=== PATIENT | female | born 1985 | race Two or more races ===

== ENCOUNTER 2016-10-30 15:35 | Emergency (ER) | payer SELFPAY ==
[2016-10-30 15:40] VITALS: BP 135/87; BMI 31.1
--- NOTE | 2016-10-30 16:16 | ED.ABDFE ---
HPI - Time seen Time seen: 16:15 - PCP Primary Care Physician: EVERARDO - HPI Comment HPI Comment: SHARP PAIN THAT IS INTERMITTENT. S/P CHOLECYSTECTOMY.PAIN IS GETTING WORSE. FEEL NAUSEATED. SHE IS DIZZY. - Complaint Chief Complaint Doctors Comments: ABDOMINAL PAIN, DIARRHEA AND DIZZINESS SINCE THIS AM. NO FEVER. PAIN RADIATES TO LEFT BACK. Chief Complaint:: PT. C/O LOWER ABDOMINAL PAIN THAT RADIATES AROUND TO LEFT SIDE OF BACK, DIARRHEA, AND DIZZINESS. PT. DESCRIBES HER ABDOMINAL PAIN STABBING AND INTERMITTENT. PT. HAS HAD 4 EPISODES OF DIARRHEA SINCE ONSET THIS MORNING. - Nurses notes reviewed Nurses Notes Review: Yes - Source History Provided: Patient - Mode of arrival Mode of Arrival: Ambulatory - Timing Onset of Chief Complaint: 10/30/16 Came on: Suddenly - Duration Duration: Constant Duration: Hours - Severity Severity: Moderate - Quality Quality: Sharp - Context Onset: Suddenly History of: None - Modifying Worsening Factors: Nothing Improving Factors: Nothing - Associated signs and symptoms Associated Signs and Symptoms: Diarrhea PMH - PMH Past Medical History: No Past Surgical History: Yes Surgical History: Cholecystectomy - Family History History of Family Medical Conditions: No - Social History Does patient currently use any type of tobacco product: No Have you used tobacco products in the last 12 months: No Type of Tobacco Use: None Does any household member use tobacco: No Alcohol Use: None Do you use any recreational Drugs:: No Lives With: Family Lives Where: Home - infectious screening In the last 2 months have you had wt loss of >10#?: NO Have you had fever, night sweats or hemotysis?: No Have you traveled outside the country in the last 6 months?: No Isolation: Standard ROS - Review of Systems Constitutional: No Symptoms Reported. negative: Chills, Diaphoresis, Fever, Weakness, Fatigue, Loss of Appetite Eyes: No Symptoms Reported. negative: Eye Pain, Discharge ENTM: No Symptoms Reported. negative: Ear Pain, Nose Discharge, Nose Congestion Respiratoy: No Symptoms Reported. negative: Productive Cough, Non-Productive Cough, Short of Breath, Wheezing, Hemoptysis Cardiovascular: No Symptoms Reported. negative: Chest Pain Gastrointestinal/Abdominal: Abdominal Pain, Diarrhea. negative: Constipation Genitourinary: No Symptoms Reported. negative: Dysuria, Frequency, Hematuria Neurological: No Symptoms Reported. negative: Headache, Weakness, Dizziness Musculoskeletal: No Symptoms Reported Integumentary: No Symptoms Reported Hematologic/Lymphatic: No Symptoms Reported Endocrine: No Symptoms Reported All Other Systems: Reviewed and Negative PE - Vital Signs Vitals: Temperature 97.7 F Pulse Rate 78 Respiratory Rate 18 Blood Pressure 135/87 O2 Sat by Pulse Oximetry 97 - General Limitations: No Limitations General Appearance: Alert - Head Head Exam: Normal Inspection - Eyes Eye exam: Normal Appearance - ENT ENT Exam: Normal External Ear Exam - Neck Neck Exam: Trachea Midline - Chest Chest Inspection: Symmetric Chest Wall Rise - Respiratory Respiratory Exam: Normal Lung Sounds Bilat Respiratory Exam: Bilateral Clear to Auscultation - Cardiovascular Cardiovascular Exam: Regular Rate, Normal Rhythm, Irregular Rhythm - Abdominal Exam Abdominal Exam: Normal Bowel Sounds, Soft, Tenderness Abdominal Tenderness: Diffuse, Moderate - Rectal Rectal Exam: Deferred - Back Back Exam: Normal Inspection - Extremeties Extremities Exam: Normal Inspection - External Exam: Female: Deferred : Speculum Exam (Female): Deferred : Bimanual Exam (female): Deferred - Neurologic Neurological Exam: Alert, Oriented X3 - Psychiatric Psychiatric Exam: Anxious - Skin Skin Exam: Normal Color MDM - Additional Information Obtained From Additional information provided by: Family (NEIGHBOR) - Differential Diagnosis Differential Diagnosis- Considerations may include:: Bowel Obstruction, Diverticular disease, Gastroenteritis, Inflammatory BD, Pancreatitis, Urinary tract infection, Urolithiasis Course - Treatment Treatment: IM PAIN MED IN ED. PAIN DECREASING. 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 - Labs Reviewed Laboratory Results Reviewed?: Yes Result Diagrams: 10/30/16 16:23 10/30/16 16:23 Laboratory: WBC 9.8 X10^3/uL (3.6-10.0) 10/30/16 16:23 RBC 4.28 X10^6/uL (3.5-5.4) 10/30/16 16:23 Hgb 13.0 g/dL (12.0-16.0) 10/30/16 16:23 Hct 37.3 % (36.0-47.0) 10/30/16 16:23 MCV 87.1 fL (80.0-100.0) 10/30/16 16:23 MCH 30.4 pg (27.0-34.0) 10/30/16 16:23 MCHC 34.8 g/dL (33.0-35.0) 10/30/16 16:23 RDW 13.2 % (11.6-16.5) 10/30/16 16:23 Plt Count 343 X10^3/uL (150.0-450.0) 10/30/16 16:23 MPV 7.4 fL (7.4-11.0) 10/30/16 16:23 Neut % 65.8 % (42.0-75.0) 10/30/16 16:23 Lymph % 26.7 % (21.0-51.0) 10/30/16 16:23 [place] % 5.8 % (0.0-13.0) 10/30/16 16:23 Eos % 1.2 % (0.9-2.9) 10/30/16 16:23 Baso % 0.5 % (0.2-1.0) 10/30/16 16:23 Neut # 6.5 x10^3/uL (2.2-4.8) H 10/30/16 16:23 Lymph # 2.6 X10^3/uL (1.3-2.9) 10/30/16 16:23 [place] # 0.6 x10^3/uL (0.3-0.8) 10/30/16 16:23 Eos # 0.1 x10^3/uL (0.0-0.2) 10/30/16 16:23 Baso # 0.1 X10^3/uL (0.0-0.1) 10/30/16 16:23 Absolute Nucleated RBC 0.0 /100WBC 10/30/16 16:23 Sodium 137 mmol/L (136-145) 10/30/16 16:23 Corrected Sodium TNP 10/30/16 16:23 Potassium 3.8 mmol/L (3.5-5.1) 10/30/16 16:23 Chloride 101 mmol/L (98-107) 10/30/16 16:23 Carbon Dioxide 29.2 mmol/L (21-32) 10/30/16 16:23 BUN 9 mg/dL (7-18) 10/30/16 16:23 Creatinine 0.74 mg/dL (0.55-1.02) 10/30/16 16:23 Est GFR (MDRD) Af Amer > 60 (>60) 10/30/16 16:23 Est GFR (MDRD) Non-Af > 60 (>60) 10/30/16 16:23 Glucose 98 mg/dL (65-99) 10/30/16 16:23 Calcium 8.5 mg/dL (8.5-10.1) 10/30/16 16:23 Corrected Calcium TNP 10/30/16 16:23 Total Bilirubin 0.30 mg/dL (0.2-1.0) 10/30/16 16:23 AST 27 Units/L (15-37) 10/30/16 16:23 ALT 45 Units/L (12-78) 10/30/16 16:23 Alkaline Phosphatase 86 Units/L (46-116) 10/30/16 16:23 Total Protein 8.3 g/dL (6.4-8.2) H 10/30/16 16:23 Albumin 3.5 g/dL (3.4-5.0) 10/30/16 16:23 Globulin 4.8 g/dL (2.5-4.5) H 10/30/16 16:23 Albumin/Globulin Ratio 0.7 Ratio (1.1-2.1) L 10/30/16 16:23 Amylase 71 Units/L (25-115) 10/30/16 16:23 Lipase 160 Units/L (73-393) 10/30/16 16:23 HCG, Qual Negative <10 mIU/mL 10/30/16 16:23 Specimen Type Clean catch urine 10/30/16 16:17 Urine Color Pale yellow (YELLOW) 10/30/16 16:17 Urine Appearance Clear (CLEAR) 10/30/16 16:17 Urine pH 6.5 (5.0 - 8.0) 10/30/16 16:17 Ur Specific [place] 1.010 (1.000-1.030) 10/30/16 16:17 Urine Protein Negative (NEGATIVE) 10/30/16 16:17 Urine Glucose (UA) Negative (NEGATIVE) 10/30/16 16:17 Urine Ketones Negative (NEGATIVE) 10/30/16 16:17 Urine Occult Blood 3+ (NEGATIVE) 10/30/16 16:17 Urine Nitrite Negative (NEGATIVE) 10/30/16 16:17 Urine Bilirubin Negative (NEGATIVE) 10/30/16 16:17 Urine Urobilinogen Normal (NORMAL) 10/30/16 16:17 Ur Leukocyte Esterase Negative (NEGATIVE) 10/30/16 16:17 Urine RBC 5-8 /HPF (NEGATIVE) 10/30/16 16:17 Urine WBC 0-1 /HPF (NEGATIVE) 10/30/16 16:17 Ur Squamous Epith Cells Rare /HPF (NEGATIVE) 10/30/16 16:17 Amorphous Sediment Trace /HPF (NEGATIVE) 10/30/16 16:17 Urine Bacteria Negative /HPF (NEGATIVE) 10/30/16 16:17 Ur Culture Indicated? No/not indicated 10/30/16 16:17 - XRAY XRAY Interpreted by: Radiologist XRAY Findings: REPORT DISCUSS WITH PATIENT. - Diagnosis Discharge Problem: Lt flank pain, Dizziness Abdominal pain Qualifiers: Abdominal location: generalized Qualified Code(s): R10.84 - Generalized abdominal pain Diarrhea Qualifiers: Diarrhea type: unspecified type Qualified Code(s): R19.7 - Diarrhea, unspecified - Discharge Plan Disposition: HOME, SELF-CARE Condition: Stable Prescriptions: Dicyclomine HCl [Bentyl Cap 10 mg] 10 mg PO TID #15 cap Diphenoxylate/Atropine [Lomotil] 1 tab PO TID #15 tab - Follow ups/Referrals Follow ups/Referrals: [facility],None [Primary Care Provider] - 3 days MELISSA LANG [STAFF PHYSICIAN] - 10/31/16 - Instructions Instructions: Abdominal Pain, Adult, [id number], Diarrhea, Adult, Easy-to- Read Additional Instructions: RETURN TO ED IF WORSE.
[2016-10-30 16:31] LABS: BASOPHILS # (AUTO) 0.1 X10^3/uL (0.0-0.1); BASOPHILS % (AUTO) 0.5 % (0.2-1.0); EOSINOPHILS # (AUTO) 0.1 x10^3/uL (0.0-0.2); EOSINOPHILS % (AUTO) 1.2 % (0.9-2.9); HEMATOCRIT 37.3 % (36.0-47.0); LYMPHOCYTES # (AUTO) 2.6 X10^3/uL (1.3-2.9); LYMPHOCYTES % (AUTO) 26.7 % (21.0-51.0); MEAN CORPUSCULAR HEMOGLOBIN 30.4 pg (27.0-34.0); MEAN CORPUSCULAR HGB CONC 34.8 g/dL (33.0-35.0); MEAN CORPUSCULAR VOLUME 87.1 fL (80.0-100.0); MEAN PLATELET VOLUME 7.4 fL (7.4-11.0); MONOCYTES # (AUTO) 0.6 x10^3/uL (0.3-0.8); MONOCYTES % (AUTO) 5.8 % (0.0-13.0); NEUTROPHILS # (AUTO) 6.5 x10^3/uL (2.2-4.8); NEUTROPHILS % (AUTO) 65.8 % (42.0-75.0); PLATELET COUNT 343 X10^3/uL (150.0-450.0); RED BLOOD COUNT 4.28 X10^6/uL (3.5-5.4); RED CELL DISTRIBUTION WIDTH 13.2 % (11.6-16.5); WHITE BLOOD COUNT 9.8 X10^3/uL (3.6-10.0)
[2016-10-30 16:32] LABS: BILIRUBIN,URINE NEGATIVE (NEGATIVE); BLOOD/HEMOGLOBIN,URINE 3+ (NEGATIVE); GLUCOSE, URINE NEGATIVE (NEGATIVE); KETONES,URINE NEGATIVE (NEGATIVE); LEUKOCYTE ESTERASE ,URINE NEGATIVE (NEGATIVE); NITRITES,URINE NEGATIVE (NEGATIVE); PH,URINE 6.5 (5.0 - 8.0); PROTEIN,URINE NEGATIVE (NEGATIVE); UROBILINOGEN,URINE NORMAL (NORMAL)
[2016-10-30 16:40] LABS: AMORPHOUS SEDIMENT,UR TRACE /HPF (NEGATIVE); APPEARANCE,URINE CLEAR (CLEAR); BACTERIA,URINE NEGATIVE /HPF (NEGATIVE); COLOR,URINE PALE YELLOW (YELLOW); SQUAMOUS EPITHELIAL CELL,UR RARE /HPF (NEGATIVE)
[2016-10-30 16:43] LABS: ALANINE AMINOTRANSFERASE 45 Units/L (12-78); ALBUMIN 3.5 g/dL (3.4-5.0); ALKALINE PHOSPHATASE 86 Units/L (46-116); AMYLASE 71 Units/L (25-115); ASPARTATE AMINO TRANSFERASE 27 Units/L (15-37); BLOOD UREA NITROGEN 9 mg/dL (7-18); CALCIUM 8.5 mg/dL (8.5-10.1); CARBON DIOXIDE 29.2 mmol/L (21-32); CHLORIDE 101 mmol/L (98-107); CREATININE 0.74 mg/dL (0.55-1.02); GLUCOSE 98 mg/dL (65-99); LIPASE 160 Units/L (73-393); SODIUM 137 mmol/L (136-145); TOTAL PROTEIN 8.3 g/dL (6.4-8.2); eGFR BLACK RACES > 60 (>60); eGFR NON BLACK RACES > 60 (>60)
[2016-10-30 16:51] LABS: SERUM PREGNANCY TEST, QUAL NEGATIVE <10 mIU/mL
--- NOTE | 2016-10-30 17:09 | RAD ---
HISTORY: Right lower abdominal and back pain Study: Acute abdominal series Comparison: None Findings: The trachea is midline. The cardiac silhouette is unremarkable. The lungs are clear without focal mass or consolidation. There is no effusion or pneumothorax. The bony thorax is grossly unremarkab le. Flat plate and upright evaluation of the abdomen demonstrates a normal bowel gas pattern without pne umoperitoneum. The patient is status post cholecystectomy. There are lucent centered calcifications in the right upper quadrant which could reflect drops stones, nephrolithiasis, or perhaps calcifica tions related to the 12th rib. If further imaging evaluation is clinically warranted, ultrasound or CT would be recommended. The bony structures are grossly intact. IMPRESSION: 1. No acute cardiopulmonary disease. 2. Right upper quadrant calcifications as above without definite acute finding. Reported By:
[2016-10-30] MEDS ORDERED: DEMEROL INJ IM ONE (17:50)
[2016-10-30] MEDS ORDERED: PHENERGAN INJ 25 MG IM ONE (17:50)
[2016-10-30] MEDS ORDERED: PHENERGAN INJ 25 MG ONE (18:10)
[2016-10-30] MEDS ORDERED: DEMEROL INJ ONE (18:10)
--- NOTE | 2016-10-30 18:22 | CT ---
CT abdomen and pelvis without contrast Indication: Abdominal pain Comparison: None available Technique: Multiple axial images of the abdomen and pelvis were obtained from the lung bases to the pubic symph ysis without the administration of IV contrast. Coronal and sagittal images were also provided. Radiation dose reduction techniques were performed utilizing adjustment for MA/kVP based on patient body size. Findings: The visualized portions of the lung bases are unremarkable. The bony structures are grossly intact. Given the limitations of lack of IV contrast administration the liver, spleen, pancreas, and adrenal glands are unremarkable in their CT appearance. Previous cholecystectomy is noted. Several calcific ations along the posterior margin of the inferior liver suspect represent dropped gallstones. No evidence of stone within either kidney or ureter. No hydronephrosis is identified. No bowel wall thickening or bowel dilatation is present. The colon and rectum are unremarkable. Th e urinary bladder is grossly unremarkable. The appendix is normal. Small cyst is noted within the le ft adnexa. The uterus is large however no discrete uterine mass is not identified. No mesenteric lymphadenopathy or stranding can be observed. No free fluid or free air is seen withi n the abdomen. IMPRESSION: 1. No acute inflammatory process within the abdomen or pelvis given the limitations of a noncontras t examination. Reported By:
== END 2016-10-30 19:07 | disposition home or self-care (01) ==
LOC: ER 15:50
DX: R10.84 Generalized abdominal pain (principal); R42 Dizziness and giddiness; R19.7 Diarrhea, unspecified
CPT/HCPCS: 36415; 74022; 74176; 80053; 81001; 82150; 83690; 84703; 85025; 96372; 99283; J2175; J2550